=== PATIENT | female | born 1955 | race Caucasian/White ===

== ENCOUNTER → 2016-03-16 | Outpatient (CLI) | payer BC ==
[~2016-03-16] MED LIST: BRISDELLE7.5 M1 PO; CIPROFLOXACIN H10 ML OT; LEVOFLOXACIN500 MG PO; LISINOPRIL10 M1 PO; PANTOPRAZOLE SO40 MG PO; ROSUVASTATIN CA10 MG PO
== END | disposition home or self-care (01) ==
LOC: CT 10:40
DX: H92.02 Otalgia, left ear (principal)

== ENCOUNTER 2022-03-28 07:23 | Emergency (ER) | payer OTHER, MEDICARE ==
[~2022-03-28] VITALS: Ht 172.7 cm; Wt 102.5 kg
[2022-03-28 07:56] LABS: BASO # 0.1 10*3/uL (0.0-0.1); BASO % 0.9 % (0.0-1.0); EOS # 0.1 10*3/uL (0.0-0.4); EOS % 1.5 % (1.0-4.0); HEMATOCRIT 41.5 % (37.0-47.0); LYMPH # 1.8 10*3/uL (1.3-4.4); LYMPH % 31.3 % (27.0-41.0); MEAN CORPUSCULAR HGB 28.5 pg (27.0-31.0); MEAN CORPUSCULAR HGB CONC 31.3 g/dl (33.0-37.0); MEAN PLATELET VOLUME 8.4 fl (9.6-12.3); MONO # 0.4 10*3/uL (0.1-1.0); MONO % 7.5 % (3.0-9.0); NEUT # 3.4 10*3/uL (2.3-7.9); NEUT % 58.6 % (47.0-73.0); PLATELET COUNT AUTOMATED 327 10*3/uL (130-400); RED BLOOD COUNT 4.56 10*6/uL (4.10-5.10); RED CELL DISTRI WIDTH 13.2 % (0-14.5); WHITE BLOOD COUNT 5.9 10*3/uL (4.8-10.8)
[2022-03-28 08:07] LABS: ACT PARTIAL THROMBO TIME 26.9 SECONDS (20.0-32.1)
[2022-03-28 08:17] LABS: ALKALINE PHOSPHATASE 100 U/L (46-116); BUN 16 mg/dl (9-23); CHLORIDE 104 mmol/L (98-107); LIPASE 35 U/L (12-53); POTASSIUM 4.3 mmol/L (3.4-5.1); SGPT/ALT 11 U/L (10-49); TOTAL PROTEIN 7.2 gm/dL (6.0-8.0)
[2022-03-29] MEDS ORDERED: CIPRO500 MG PO (13:11)
[2022-03-29] MEDS ORDERED: METRONIDAZ500 MG/101 IV (13:13)
[2022-03-29] MEDS ORDERED: COMPAZINE10 M1 PO (13:14)
== END 2022-03-28 09:45 | disposition home or self-care (01) ==
LOC: ED 07:23
PROVIDERS: Emergency Medicine
DX: S29.012A Strain of muscle and tendon of back wall of thorax, initial encounter (principal); S09.90XA Unspecified injury of head, initial encounter; E04.1 Nontoxic single thyroid nodule; Z88.5 Allergy status to narcotic agent; Z91.041 Radiographic dye allergy status; Z90.710 Acquired absence of both cervix and uterus; Z90.89 Acquired absence of other organs; Z98.890 Other specified postprocedural states; V89.2XXA Person injured in unspecified motor-vehicle accident, traffic, initial encounter; Y93.89 Activity, other specified; Y92.410 Unspecified street and highway as the place of occurrence of the external cause; Y99.8 Other external cause status

== ENCOUNTER 2022-03-29 08:39 | Emergency (ER) | payer MEDICARE ==
[~2022-03-29] VITALS: Wt 90.7 kg
[2022-03-29 10:20] LABS: BASO % 0.3 % (0.0-1.0); EOS % 0.1 % (1.0-4.0); HEMATOCRIT 41.8 % (37.0-47.0); LYMPH # 1.3 10*3/uL (1.3-4.4); LYMPH % 8.5 % (27.0-41.0); MEAN CELL VOLUME 91.5 fl (81.0-99.0); MEAN CORPUSCULAR HGB 28.2 pg (27.0-31.0); MEAN CORPUSCULAR HGB CONC 30.9 g/dl (33.0-37.0); MEAN PLATELET VOLUME 8.5 fl (9.6-12.3); MONO # 1.2 10*3/uL (0.1-1.0); MONO % 8.2 % (3.0-9.0); NEUT # 12.4 10*3/uL (2.3-7.9); NEUT % 82.6 % (47.0-73.0); PLATELET COUNT AUTOMATED 317 10*3/uL (130-400); RED BLOOD COUNT 4.57 10*6/uL (4.10-5.10); RED CELL DISTRI WIDTH 13.4 % (0-14.5)
[2022-03-29 10:23] LABS: BILIRUBIN 2+ (Negative); BLOOD Negative (Negative); CLARITY Turbid (Clear); GLUCOSE Negative (Negative); KETONE 1+ (Negative); LEUKO ESTERASE 2+ (Negative); NITRITE Negative (Negative); SPECIFIC GRAVITY 1.025 (1.001-1.030)
[2022-03-29 10:46] LABS: ALKALINE PHOSPHATASE 91 U/L (46-116); BUN 19 mg/dl (9-23); CHLORIDE 103 mmol/L (98-107); LIPASE 28 U/L (12-53); POTASSIUM 4.7 mmol/L (3.4-5.1); SGPT/ALT 15 U/L (10-49)
[2022-03-29 10:58] LABS: COLOR Dark Yellow (Yellow)
[2022-03-29 11:04] LABS: BACTERIA 2+; EPITHELIAL CELLS 51-100; RBC 0-2 rbc/hpf (0-2); WBC 21-30 wbc/hpf (0-5)
[2022-03-29] MEDS ORDERED: CIPRO500 MG PO (13:11)
[2022-03-29] MEDS ORDERED: METRONIDAZ500 MG/101 IV (13:13)
[2022-03-29] MEDS ORDERED: COMPAZINE10 M1 PO (13:14)
== END 2022-03-29 13:46 | disposition home or self-care (01) ==
LOC: ED 08:39
PROVIDERS: Emergency Medicine
DX: K92.1 Melena (principal); R19.7 Diarrhea, unspecified; R10.32 Left lower quadrant pain; R11.0 Nausea; Z88.8 Allergy status to other drugs, medicaments and biological substances; Z79.899 Other long term (current) drug therapy; Z90.710 Acquired absence of both cervix and uterus; Z90.89 Acquired absence of other organs